=== PATIENT | male | born 1995 | race Asian ===

== ENCOUNTER 2017-05-04 14:49 | Emergency (ER) | payer OTHER ==
[~2017-05-04] VITALS: Ht 170.2 cm; Wt 69.9 kg
[2017-05-04 15:05] VITALS: BP 134/69; TEMP 98.7
[2017-05-04 15:55] LABS: PLATELET COUNT 277 K/uL (142-355)
== END 2017-05-04 15:43 | disposition home or self-care (01) ==
LOC: ED 14:49
DX: A60.00 Herpesviral infection of urogenital system, unspecified (principal)
CPT/HCPCS: 36415; 81000; 85027; 99283

== ENCOUNTER 2017-11-16 09:43 | Emergency (ER) | payer OTHER ==
[~2017-11-16] VITALS: Ht 170.2 cm; Wt 68.9 kg
[2017-11-16 09:51] VITALS: BP 112/50; TEMP 99.2
== END 2017-11-16 10:22 | disposition home or self-care (01) ==
LOC: ED 09:43
DX: R53.1 Weakness (principal); R50.9 Fever, unspecified; R52 Pain, unspecified
CPT/HCPCS: 99282